=== PATIENT | female | born 2000 | race Caucasian/White ===

== ENCOUNTER 2022-09-20 10:02 | Day surgery (SDC) | payer BC ==
[2022-09-05 16:03] VITALS: BMI 23.6
[2022-09-20 10:33] VITALS: TEMP 97.8
[2022-09-20 11:52] VITALS: RESP 16
[2022-09-20 12:02] VITALS: BP 115/68; PULSE 71
== END 2022-09-20 12:20 | disposition home or self-care (01) ==
LOC: FASU-ENDO 10:02
PROVIDERS: ATTEND Internal Medicine Gastroenterology
PROC: 0DB78ZX Excision of Stomach, Pylorus, Via Natural or Artificial Opening Endoscopic, Diagnostic (ICD-10-PCS; 2022-09-20)
PROC: 0DB48ZX Excision of Esophagogastric Junction, Via Natural or Artificial Opening Endoscopic, Diagnostic (ICD-10-PCS; 2022-09-20)
PROC: 0DB98ZX Excision of Duodenum, Via Natural or Artificial Opening Endoscopic, Diagnostic (ICD-10-PCS; principal; 2022-09-20 11:23)
DX: K29.70 Gastritis, unspecified, without bleeding (principal); K21.00 Gastro-esophageal reflux disease with esophagitis, without bleeding
CPT/HCPCS: 81025; 88305-TC; 88342-TC